=== PATIENT | female | born 1980 | race Two or more races ===

== ENCOUNTER 2021-03-13 23:13 | Outpatient (CLI) | payer OTHER | END 2021-03-13 23:14 | disposition critical access hospital (66) | LOC: EMS 23:13 | DX: R07.9 Chest pain, unspecified (principal); R11.10 Vomiting, unspecified | CPT/HCPCS: A0425; A0429 ==

== ENCOUNTER 2021-03-13 23:30 | Emergency (ER) | payer OTHER ==
--- NOTE | 2021-03-14 00:06 | ED Physician Documentation ---
PD HPI ABD PAIN - Stated complaint Stated Complaint: ALLERGIC RX - Chief complaint Chief Complaint: Abd Pain - History obtained from History obtained from: Patient - History of Present Illness Timing - onset: How many weeks ago (2-3) Timing - duration: Hours (she has had episodes of upper abd pains after eating for several weeks. Seen at [facility] and Dx with presumed gastritis. Normal labs per patient. Rx with Omeprazole and Cimetidine, and instructed to take PRN when abd worse. She is taking Cimetidine at times with pain without improvement. Took TUMs) Timing - details: Intermittant (most noted shortly to half hour after eating, more with spicy or acidic foos like tomato sauce, tomatoes, citrus. Does not feel it particular with fatty foods, though does not eat much fatty.) Quality: Cramping, Aching, Pain Location: RUQ, Epigastric Radiation: Upper back Improved by: No: Eating, Laying still, BM Worsened by: Eating. No: Moving, Breathing Associated symptoms: Nausea. No: Fever, Vomiting, Diarrhea, Constipation, Melena Similar symptoms before: Has not had sx before Recently seen: Clinic (seen [facility] 02/28/21 for this and Rx Omeprazole and Cimetidine.) Review of Systems Constitutional: denies: Fever, Chills Nose: denies: Rhinorrhea / runny nose, Congestion Throat: denies: Sore throat Respiratory: denies: Cough GI: reports: Abdominal Pain, Nausea. denies: Vomiting, Diarrhea : denies: Dysuria, Frequency Musculoskeletal: denies: Neck pain, Back pain, Extremity swelling Neurologic: denies: Generalized weakness, Near syncope PD PAST MEDICAL HISTORY - Past Medical History Past Medical History: Yes Cardiovascular: None Respiratory: None Neuro: None Endocrine/Autoimmune: None GI: GERD - Past Surgical History Past Surgical History: No - Present Medications Home Medications: Ambulatory Orders Medication Instructions Recorded Confirmed Cimetidine 200 mg PO TID 03/14/21 03/14/21 Lidocaine Viscous 2% [Xylocaine 5 ml PO Q4H PRN #100 ml 03/14/21 Viscous 2%] Omeprazole 20 mg PO DAILY 03/14/21 03/14/21 - Allergies Allergies/Adverse Reactions: Allergies Allergy/AdvReac Type Severity Reaction Status Date / Time No Known Drug Allergies Allergy Verified 03/13/21 23:43 - Social History Does the pt smoke?: No Smoking Status: Never smoker Does the pt drink ETOH?: Yes Does the pt have substance abuse?: No - Immunizations Immunizations are current?: Yes - POLST Patient has POLST: No PD ED PE NORMAL - Vitals Vital signs reviewed: Yes - General General: Alert and oriented X 3, Well developed/nourished - HEENT HEENT: Moist mucous membranes, Pharynx benign - Neck Neck: Supple, no meningeal sign, No adenopathy - Cardiac Cardiac: RRR, No murmur - Respiratory Respiratory: Clear bilaterally - Abdomen Abdomen: Normal bowel sounds, Soft, Non distended, No organomegaly, Other (tender epigastric to RUQ area without percussion nor rebound tenderness. ) - Female Female : Deferred - Rectal Rectal: Deferred - Back Back: No CVA TTP - Derm Derm: Normal color, Warm and dry - Extremities Extremities: Normal ROM s pain, No edema, No calf tenderness / cord - Neuro Neuro: Alert and oriented X 3, No motor deficit, Normal speech Results - Vitals Vitals: Vital Signs - 24 hr 03/13/21 03/14/21 03/14/21 23:38 00:24 01:11 Temperature 36.7 C Heart Rate 65 65 Respiratory 14 16 17 Rate Blood Pressure 120/71 111/70 O2 Saturation 100 99 03/14/21 03/14/21 03/14/21 01:48 02:15 03:04 Temperature Heart Rate 56 L 71 71 Respiratory 17 14 16 Rate Blood Pressure 105/55 L 100/58 L 102/57 L O2 Saturation 100 99 97 03/14/21 03:28 Temperature 36.7 C Heart Rate 68 Respiratory 16 Rate Blood Pressure 102/57 L O2 Saturation 98 Oxygen O2 Source Room air - Labs Labs: Laboratory Tests 03/14/21 03/14/21 01:08 01:08 WBC 10.1 RBC 4.34 Hgb 13.8 Hct 40.2 MCV 92.6 MCH 31.8 H MCHC 34.3 RDW 12.0 Plt Count 222 MPV 9.3 Neut # (Auto) 7.7 H Lymph # (Auto) 1.8 [place] # (Auto) 0.6 Eos # (Auto) 0.0 Baso # (Auto) 0.0 Sodium 135 Potassium 4.4 Chloride 101 Carbon Dioxide 26 Anion Gap 8.0 BUN 12 Creatinine 0.8 Estimated GFR (MDRD) 80 L Glucose 131 H Calcium 9.2 Total Bilirubin 0.8 AST 11 ALT 15 Alkaline Phosphatase 80 Total Protein 7.7 Albumin 4.4 Globulin 3.3 Albumin/Globulin Ratio 1.3 Lipase 38 - Rads (name of study) upper abd U/S Radiology: Prelim report reviewed (gallbladder wall thickening without surrounding fluid. Gallstones noted, with one in neck. ), See rad report PD MEDICAL DECISION MAKING - ED course Complexity details: reviewed results (labs are okay. U/S showing some GB wall thickening and neck stone, but no surrounding fluid. Physiologically distended. ), re-evaluated patient (she is feeling better after GI cocktail mainly, suggestive of gastric cause of the pain. But has character of symptoms suggestin g GB colic, so getting labs/Ultrasound. ), considered differential, d/w patient Departure - Departure Disposition: 01 Home, Self Care Clinical Impression: Epigastric pain, Thickening of wall of gallbladder Gastritis Qualifiers: Gastritis type: unspecified gastritis Chronicity: acute Gastritis bleeding: without bleeding Qualified Code(s): K29.00 - Acute gastritis without bleeding Condition: Stable Record reviewed to determine appropriate education?: Yes Instructions: ED Gallstone W Biliary Colic, ED PUD Vs Gastritis Follow-Up: [facility] [Provider Group] Porsche Flores MD [Provider Admit Priv/Credential] - Prescriptions: Lidocaine Viscous 2% [Xylocaine Viscous 2%] 5 ml PO Q4H PRN #100 ml PRN Reason: Pain Comments: I would suggest using the omeprazole daily for the next 3 to 4 weeks. Start your cimetidine at least twice daily for the next week. This will work on acid reduction in the stomach in 2 different ways. To that add antacids such as Maalox or Mylanta or Tums. You can combine with that the lidocaine to help with pain in the stomach. Add Tylenol if needed for pains. [place] food and well hydrated. Avoid spicy and fatty foods. Follow-up with general surgery regarding the idea of endoscopy to better evaluate the cause of the symptoms, gastritis versus ulcer, and to consider the extent the gallbladder is involved. Your ultrasound does show some stone in the gallbladder near the neck (outlet) of the gallbladder and some mild wall thickening, suggesting some inflammation of the gallbladder. Call Dr. Flores's office later today and tell them you were seen in the ER and would like a soon follow up appt. Follow-up with your primary care in about a week for reevaluation. Call for an appointment. Recheck with them sooner if not improving well over the next 3 to 5 days. Return to the ER if needed. [facility]
[2021-03-14] MEDS ORDERED: ONDANSETRON 4 MG/2 ML VIAL IVP STA (00:25)
[2021-03-14] MEDS ORDERED: MAG HYDROX/AL HYDROX/SIMETH 30 ML UDC PO STA (00:25)
[2021-03-14] MEDS ORDERED: MORPHINE 10 MG/ML VIAL IVP STA (00:25)
[2021-03-14] MEDS ORDERED: LIDOCAINE VISCOUS 2% 15 ML UDC MM STA (00:25)
[2021-03-14 02:17] LABS: HCT - HEMATOCRIT 40.2 % (37.0-47.0); HGB - HEMOGLOBIN 13.8 g/dL (12.0-16.0); MEAN CORPUSCULAR VOLUME 92.6 fL (81.0-99.0); RED BLOOD COUNT 4.34 10^6/uL (4.20-5.40); WHITE BLOOD COUNT 10.1 x10^3/uL (4.8-10.8)
[2021-03-14 02:18] LABS: LYMPHOCYTES % (AUTO) 17.4 %; MEAN CORPUSCULAR HEMOGLOBIN 31.8 pg (27.0-31.0); MEAN CORPUSCULAR HGB CONC 34.3 g/dL (32.0-36.0); MEAN PLATELET VOLUME 9.3 fL (7.9-10.8); MONOCYTES % (AUTO) 5.9 %; NEUTROPHILS % (AUTO) 75.7 %; PLT - PLATELET COUNT 222 10^3/uL (130-450)
[2021-03-14 02:19] LABS: ALBUMIN 4.4 g/dL (3.2-5.5); ALBUMIN/GLOBULIN RATIO 1.3 (1.0-2.2); BASOPHILS % (AUTO) 0.4 %; BILIRUBIN,TOTAL 0.8 mg/dL (0.2-1.0); CALCIUM 9.2 mg/dL (8.5-10.3); CREATININE 0.8 mg/dL (0.4-1.0); EOSINOPHILS % (AUTO) 0.4 %; LYMPHOCYTES # (AUTO) 1.8 10^3/uL (1.5-3.5); MONOCYTES # (AUTO) 0.6 10^3/uL (0.0-1.0); NEUTROPHILS # (AUTO) 7.7 10^3/uL (1.5-6.6); POTASSIUM 4.4 mmol/L (3.5-5.0); TOTAL PROTEIN 7.7 g/dL (6.7-8.2)
[2021-03-14 03:05] VITALS: BP 102/57
--- NOTE | 2021-03-14 08:08 | Ultrasound Report ---
PROCEDURE: Abdomen Limited INDICATIONS: epigastric/RUQ pain with vomiting TECHNIQUE: Real-time focused scanning was performed of the abdomen, with image documentation. COMPARISON: None available. FINDINGS: LIVER: The liver is normal in size and contour. No significant abnormality. PANCREAS: The visualized portions of the pancreas are normal. Gallbladder and biliary tree: Gallbladder wall thickening, measuring up to 3.8 mm. No appreciable p ericholecystic fluid. Multiple shadowing gallstones are seen, extending into the neck. The common bile that measures up to 4.2 mm. RIGHT KIDNEY: Normal in appearance with no hydronephrosis. Measuring 10 cm in length. The renal cor xiomara thickness measures 1.3 cm. No ascites. IMPRESSION: 1.Cholelithiasis as detailed above. Concordant interpretation with preliminary report. Reviewed by: Jose Peter MD on 03/14/2021 8:07 AM PDT Approved by: Jose Peter MD on 03/14/2021 8:07 AM PDT Station ID: [id number]
== END 2021-03-14 03:48 | disposition home or self-care (01) ==
LOC: ED 23:30
DX: K29.00 Acute gastritis without bleeding (principal); K82.8 Other specified diseases of gallbladder; K80.20 Calculus of gallbladder without cholecystitis without obstruction; K21.9 Gastro-esophageal reflux disease without esophagitis
CPT/HCPCS: 36415; 76705; 80053; 83690; 85025; 96374; 96375; 99283; 99284; A9270

== ENCOUNTER 2021-03-16 06:20 | Day surgery (SDC) | payer OTHER ==
--- NOTE | 2021-03-16 06:49 | ED Physician Documentation ---
PD HPI ABD PAIN - Stated complaint Stated Complaint: CHEST/ABD PX - Chief complaint Chief Complaint: Abd Pain - History obtained from History obtained from: Patient - History of Present Illness Timing - onset: Enter time (1230), Last night Timing - duration: Hours Timing - details: Abrupt onset, Still present Quality: Sharp, Pain Location: RUQ Radiation: Upper back Improved by: Laying still, Position, Meds Worsened by: Eating, Moving, Breathing, Position, Palpation Associated symptoms: Nausea. No: Fever, Diarrhea, Constipation Similar symptoms before: Diagnosis (cholelithiasis) Recently seen: Emergency Dept - Additional information Additional information: 40-year-old female reports a year-long history of postprandial abdominal pain. She states that usually this last 4 to 5 hours it is not severe in nature and is predictable depending on the foods eaten. She has had several episodes previou sly where she has had pains lasted all night and included some vomiting and radiation of the pain to her back. She had an episode similar 3 days ago and she had ultrasound done here in the emergency department demonstrating cholelithiasis and a thickened gallbladder wall. At that time she had normal white blood cell count she had control of her pain and went home. She was able to eat a banana yesterday without pain. Began at 1230 last night she developed pain radiating to her back and she has pain with each breath. She has some nausea with peak of the pain Review of Systems Constitutional: denies: Fever Eyes: denies: Decreased vision Ears: denies: Ear pain Nose: denies: Rhinorrhea / runny nose, Congestion Throat: denies: Dental pain / toothache Cardiac: reports: Chest pain / pressure. denies: Palpitations, Pedal edema, Calf pain Respiratory: denies: Dyspnea, Cough, Wheezing GI: reports: Abdominal Pain, Nausea, Other (no acholic stool). denies: Constipation, Diarrhea : denies: Dysuria, Frequency Skin: denies: Rash Musculoskeletal: reports: Back pain. denies: Neck pain, Extremity pain Neurologic: denies: Generalized weakness, Focal weakness, Numbness PD PAST MEDICAL HISTORY - Past Medical History Cardiovascular: None Respiratory: None Neuro: None Endocrine/Autoimmune: None GI: GERD - Past Surgical History Past Surgical History: No - Present Medications Home Medications: Ambulatory Orders Medication Instructions Recorded Confirmed Cimetidine 200 mg PO TID 03/14/21 03/16/21 Lidocaine Viscous 2% [Xylocaine 5 ml PO Q4H PRN #100 ml 03/14/21 03/16/21 Viscous 2%] Omeprazole 20 mg PO DAILY 03/14/21 03/16/21 - Allergies Allergies/Adverse Reactions: Allergies Allergy/AdvReac Type Severity Reaction Status Date / Time No Known Drug Allergies Allergy Verified 03/16/21 06:48 - Social History Does the pt smoke?: No Smoking Status: Never smoker Does the pt drink ETOH?: Yes Does the pt have substance abuse?: No - Immunizations Immunizations are current?: Yes - POLST Patient has POLST: No PD ED PE NORMAL - Vitals Vital signs reviewed: Yes (hypertensive ) - General General: Alert and oriented X 3, Well developed/nourished, Other (moaning in pain with each breath) - HEENT HEENT: Atraumatic, PERRL, EOMI - Neck Neck: Supple, no meningeal sign, No bony TTP - Cardiac Cardiac: RRR, No murmur - Respiratory Respiratory: No respiratory distress, Clear bilaterally - Abdomen Abdomen: Normal bowel sounds, Soft, Non distended, No organomegaly, Other (RUQ tenderness to palpation is reproducible. ) - Back Back: No CVA TTP, No spinal TTP - Derm Derm: Normal color, Warm and dry, No rash - Extremities Extremities: No deformity, No edema - Neuro Neuro: Alert and oriented X 3, jewelry repairer 2-12 intact, No motor deficit, No sensory deficit, Normal speech Eye Opening: Spontaneous Motor: Obeys Commands Verbal: Oriented GCS Score: 15 - Psych Psych: Normal mood, Normal affect Results - Vitals Vitals: Vital Signs - 24 hr 03/16/21 03/16/21 03/16/21 06:25 07:38 09:07 Temperature 36.7 C 36.7 C Heart Rate 77 60 60 Respiratory 20 14 14 Rate Blood Pressure 136/116 H 125/54 L 125/54 L O2 Saturation 98 100 100 Oxygen O2 Source Room air - EKG (time done) 0634 Rate: Rate (enter#) (61) Rhythm: NSR Ischemia: Normal ST segments Compare to prior EKG: Unchanged from prior EKG (SPT 03-13-21) Computer interpretation: Agree with computer - Labs Labs: Laboratory Tests 03/16/21 03/16/21 03/16/21 06:42 06:42 07:34 WBC 8.0 RBC 4.28 Hgb 13.7 Hct 39.9 MCV 93.2 MCH 32.0 H MCHC 34.3 RDW 11.9 L Plt Count 218 MPV 9.7 Neut # (Auto) 5.7 Lymph # (Auto) 1.7 [place] # (Auto) 0.5 Eos # (Auto) 0.1 Baso # (Auto) 0.0 Absolute Nucleated RBC 0.00 Nucleated RBC % 0.0 Sodium 141 Potassium 4.2 Chloride 106 Carbon Dioxide 27 Anion Gap 8.0 BUN 8 Creatinine 0.8 Estimated GFR (MDRD) 80 L Glucose 133 H Calcium 8.9 Total Bilirubin 0.9 AST 14 ALT 13 Alkaline Phosphatase 75 Total Protein 7.4 Albumin 4.2 Globulin 3.2 Albumin/Globulin Ratio 1.3 Lipase 44 Urine Color YELLOW Urine Clarity CLEAR Urine pH 8.5 H Ur Specific [place] 1.020 Urine Protein NEGATIVE Urine Glucose (UA) NEGATIVE Urine Ketones NEGATIVE Urine Occult Blood NEGATIVE Urine Nitrite NEGATIVE Urine Bilirubin NEGATIVE Urine Urobilinogen 0.2 (NORMAL) Ur Leukocyte Esterase NEGATIVE Ur Microscopic Review NOT INDICATED Urine Culture Comments NOT INDICATED Urine HCG, Qual Nasal Adenovirus (PCR) Nasal B. parapertussis DNA (PCR) Nasal Coronavir 229E PCR Nasal Coronavir HKU1 PCR Nasal Coronavir NL63 PCR Nasal Coronavir OC43 PCR Nasal Enterovir/Rhinovir PCR Nasal Influenza B PCR Nasal Influenza A PCR Nasal Parainfluen 1 PCR Nasal Parainfluen 2 PCR Nasal Parainfluen 3 PCR Nasal Parainfluen 4 PCR Nasal RSV (PCR) Nasal B.pertussis DNA PCR Nasal C.pneumoniae (PCR) [place] Metapneumo PCR Nasal M.pneumoniae (PCR) Nasal SARS-CoV-2 (PCR) 03/16/21 03/16/21 07:37 07:58 WBC RBC Hgb Hct MCV MCH MCHC RDW Plt Count MPV Neut # (Auto) Lymph # (Auto) [place] # (Auto) Eos # (Auto) Baso # (Auto) Absolute Nucleated RBC Nucleated RBC % Sodium Potassium Chloride Carbon Dioxide Anion Gap BUN Creatinine Estimated GFR (MDRD) Glucose Calcium Total Bilirubin AST ALT Alkaline Phosphatase Total Protein Albumin Globulin Albumin/Globulin Ratio Lipase Urine Color Urine Clarity Urine pH Ur Specific [place] Urine Protein Urine Glucose (UA) Urine Ketones Urine Occult Blood Urine Nitrite Urine Bilirubin Urine Urobilinogen Ur Leukocyte Esterase Ur Microscopic Review Urine Culture Comments Urine HCG, Qual NEGATIVE Nasal Adenovirus (PCR) NOT DETECTED Nasal B. parapertussis DNA (PCR) NOT DETECTED Nasal Coronavir 229E PCR NOT DETECTED Nasal Coronavir HKU1 PCR NOT DETECTED Nasal Coronavir NL63 PCR NOT DETECTED Nasal Coronavir OC43 PCR NOT DETECTED Nasal Enterovir/Rhinovir PCR NOT DETECTED Nasal Influenza B PCR NOT DETECTED Nasal Influenza A PCR NOT DETECTED Nasal Parainfluen 1 PCR NOT DETECTED Nasal Parainfluen 2 PCR NOT DETECTED Nasal Parainfluen 3 PCR NOT DETECTED Nasal Parainfluen 4 PCR NOT DETECTED Nasal RSV (PCR) NOT DETECTED Nasal B.pertussis DNA PCR NOT DETECTED Nasal C.pneumoniae (PCR) NOT DETECTED [place] [facility] Metapneumo PCR NOT DETECTED Nasal M.pneumoniae (PCR) NOT DETECTED Nasal SARS-CoV-2 (PCR) NOT DETECTED Procedures - Bedside sono Bedside sono by EMP: With use of bedside ultrasound the right upper quadrant is imaged the gallbladder is distended gallbladder wall thickness is 4 mm the gallbladder is sonographically tender there is some pericholecystic fluid there are stones in the gallbladder. PD MEDICAL DECISION MAKING - ED course Complexity details: reviewed results, re-evaluated patient, considered differential, d/w patient, d/w analytics consultant (Our surgeon Dr. Pathak is consulted and the case will come to the emergency department to evaluate the patient.) ED course: 40-year-old female with a history of abdominal pain postprandial for the past year has stones in her gallbladder she does appear to have acute cholecystitis today.Here in the emergency department an IV is begun she is given 30 mg of Toradol intravenously which was ineffective. She is subsequently given IV morphine 4mg with zofran. Departure - Departure Disposition: ED Transfer to [facility] Clinical Impression: Cholecystitis Cholelithiasis Qualifiers: Cholelithiasis location: gallbladder Cholecystitis presence: with cholecystitis Cholecystitis acuity: acute Biliary obstruction: without biliary obstruction Qualified Code(s): K80.00 - Calculus of gallbladder with acute cholecystitis without obstruction
[2021-03-16] MEDS ORDERED: KETOROLAC 30 MG/ML VIAL IVP STA (06:52)
[2021-03-16 07:11] LABS: ALBUMIN 4.2 g/dL (3.2-5.5); ALBUMIN/GLOBULIN RATIO 1.3 (1.0-2.2); BILIRUBIN,TOTAL 0.9 mg/dL (0.2-1.0); CALCIUM 8.9 mg/dL (8.5-10.3); CREATININE 0.8 mg/dL (0.4-1.0); POTASSIUM 4.2 mmol/L (3.5-5.0); TOTAL PROTEIN 7.4 g/dL (6.7-8.2)
[2021-03-16 07:31] LABS: BASOPHILS % (AUTO) 0.4 %; EOSINOPHILS # (AUTO) 0.1 10^3/uL (0.0-0.7); EOSINOPHILS % (AUTO) 1.2 %; HCT - HEMATOCRIT 39.9 % (37.0-47.0); HGB - HEMOGLOBIN 13.7 g/dL (12.0-16.0); LYMPHOCYTES # (AUTO) 1.7 10^3/uL (1.5-3.5); LYMPHOCYTES % (AUTO) 20.8 %; MEAN CORPUSCULAR HGB CONC 34.3 g/dL (32.0-36.0); MEAN CORPUSCULAR VOLUME 93.2 fL (81.0-99.0); MEAN PLATELET VOLUME 9.7 fL (7.9-10.8); MONOCYTES # (AUTO) 0.5 10^3/uL (0.0-1.0); MONOCYTES % (AUTO) 6.7 %; NEUTROPHILS # (AUTO) 5.7 10^3/uL (1.5-6.6); NEUTROPHILS % (AUTO) 70.7 %; PLT - PLATELET COUNT 218 10^3/uL (130-450); RED BLOOD COUNT 4.28 10^6/uL (4.20-5.40); RED CELL DISTRIBUTION WIDTH 11.9 % (12.0-15.0)
[2021-03-16] MEDS ORDERED: ONDANSETRON 4 MG/2 ML VIAL IVP STA (07:44)
[2021-03-16] MEDS ORDERED: MORPHINE 2 MG/ML CARPUJECT IVP STA (07:44)
[2021-03-16 07:47] LABS: BILIRUBIN,URINE NEGATIVE (NEGATIVE); GLUCOSE, URINE (UA) NEGATIVE (NEGATIVE); KETONES,URINE (UA) NEGATIVE (NEGATIVE); LEUKOCYTE ESTERASE, URINE NEGATIVE (NEGATIVE); NITRITE,URINE NEGATIVE (NEGATIVE); OCCULT BLOOD,URINE NEGATIVE (NEGATIVE); PH,URINE 8.5 PH (5.0-7.5); PROTEIN,URINE NEGATIVE (NEGATIVE); UROBILINOGEN,URINE 0.2 (NORMAL) E.U./dL (NORMAL)
[2021-03-16 07:50] LABS: HCG UR QUAL NEGATIVE
[2021-03-16 07:50] LABS: CLARITY,URINE CLEAR (CLEAR)
[2021-03-16] MEDS ORDERED: MAG HYDROX/AL HYDROX/SIMETH 30 ML UDC PO STA (08:12)
[2021-03-16] MEDS ORDERED: SUCRALFATE 1 GM/10 ML UDC PO STA (08:12)
[2021-03-16] MEDS ORDERED: LIDOCAINE VISCOUS 2% 15 ML UDC MM STA (08:12)
[2021-03-16 09:05] LABS: B. PARAPERTUSSIS- RESP PCR PAN NOT DETECTED; B. PERTUSSIS- RESP PCR PANEL NOT DETECTED; C. PNEUMONIAE- RESP PCR PANEL NOT DETECTED; CORONAVIRUS 229E-RESP PCR NOT DETECTED; CORONAVIRUS HKU1-RESP PCR NOT DETECTED; CORONAVIRUS NL63-RESP PCR NOT DETECTED; CORONAVIRUS OC43-RESP PCR NOT DETECTED; HUMAN METAPNEUMOVIRUS NOT DETECTED; INFLUENZA A- RESP PCR PANEL NOT DETECTED; INFLUENZA B - RESP PCR PANEL NOT DETECTED; M. PNEUMONIAE- RESP PCR PANEL NOT DETECTED; PARAINFLUENZA VIRUS 1 NOT DETECTED; PARAINFLUENZA VIRUS 2 NOT DETECTED; PARAINFLUENZA VIRUS 3 NOT DETECTED; PARAINFLUENZA VIRUS 4 NOT DETECTED; RHINOVIRUS/ENTEROVIRUS NOT DETECTED; RSV- RESP PCR PANEL NOT DETECTED; SARS-CoV-2 -RESP PCR PANEL NOT DETECTED
--- NOTE | 2021-03-16 09:05 | SURGERY HX AND PHYSICAL(T) ---
Surgical History & Physical - Chief Complaint/HPI Chief Complaint: RUQ pain History of Present Illness: This 40-year-old female has had intermittent episodes of right upper quadrant abdominal pain radiating to the back for more than 1 year. The worst of these episodes began 3 days ago. She was seen in the emergency room and had an ultrasound showing a gallbladder with multiple stones including a stone possibly impacted in the neck of the gallbladder. Ultrasound showed a mildly thickened gallbladder wall. The patient was sent home and advised to follow-up with the surgery clinic for elective cholecystectomy but she had worsening pain last night and came to the emergency room. She has had nausea and vomiting but has not been jaundiced. No fever. - PMH/PSH/Social Hx Does the pt have a hx of MRSA?: No Neurological History: None Cardiovascular: None Respiratory: None Endocrine/Autoimmune: None Gastrointestinal: GERD Is Patient ?: No PMH Other: Recently DX w/ Gallstones. Smoking Status: Never smoker Does the pt drink ETOH?: Yes Frequency: Occasional Does the pt have substance abuse?: No - Family Hx Family Hx: Unremarkable (Gallstones in brother) - Home Meds and Allergies Home Medications: Cimetidine 200 mg PO TID 03/14/21 Omeprazole 20 mg PO DAILY 03/14/21 Allergies/Adverse Reactions: Allergies Allergy/AdvReac Type Severity Reaction Status Date / Time No Known Drug Allergies Allergy Verified 03/16/21 06:48 - Review of Systems Constitutional: No: Fatigue, Fever, Chills Cardiac: No: CAD Respiratory: No: Shortness of breath Gastrointestinal: Nausea, Vomiting, Abdominal pain - Vital Signs Heart Rate: 60 Blood Pressure: 125/54 Temperature: 36.7 C Respiratory Rate: 14 O2 Saturation: 100 Weight (kg): 81.647 kg Height: 1.65 m - Physical Exam General Appearance: positive: No acute distress Eyes Bilatera: positive: Normal inspection ENT: positive: ENT inspection nml Neck: positive: Trachea midline Respiratory: positive: No respiratory distress Cardiovascular: positive: Regular rate & rhythm Abdomen: positive: Tenderness (Right upper quadrant), Other (Positive Vickers sign) - Patient Review Patient Review: Problems were reviewed with the patient during this visit. Medications were reviewed with the patient during this visit. Allergies were reviewed this patient during this visit. Pertinent Tests Reviewed: All pertitent test for this patient were reviewed. - Assessment & Plan Assessment and Plan: Acute cholecystitis with cholelithiasis, normal diameter common bile duct. Normal liver function tests, normal white count. Patient has been consented for laparoscopic cholecystectomy, possible open cholecystectomy. Preoperative Zosyn 1 dose will be given
[2021-03-16] MEDS ORDERED: SODIUM CHLORIDE 0.9% 1,000 ML IV STA (09:11)
[2021-03-16] MEDS ORDERED: PIPERACILLIN/TAZOBACTAM 3.375 GM in SODIUM CHLORIDE 0.9% MINIBAG 100 ML IV STA (09:11)
--- NOTE | 2021-03-16 09:50 | ANESTHESIA ---
Pre-Anesthesia VS, & Labs - Diagnosis acute cholecystitis - Procedure Lap Dulce Maria Vital Signs: Temp Pulse Resp BP Pulse Ox 36.7 C 60 14 125/54 L 100 03/16/21 09:10 03/16/21 09:10 03/16/21 09:10 03/16/21 09:10 03/16/21 09:10 Height: 5 ft 5 in Weight (kg): 81.647 kg Body Mass Index: 29.9 BMI Classification: Overweight - NPO >8 hours - Is Patient ?: No - Lab Results Current Lab Results: Laboratory Tests 03/16/21 06:42: Sodium 141, Potassium 4.2, Chloride 106, Carbon Dioxide 27, Anion Gap 8.0, BUN 8, Creatinine 0.8, Estimated GFR (MDRD) 80 L, Glucose 133 H, Calcium 8.9, Total Bilirubin 0.9, AST 14, ALT 13, Alkaline Phosphatase 75, Total Protein 7.4, Albumin 4.2, Globulin 3.2, Albumin/Globulin Ratio 1.3, Lipase 44 03/16/21 06:42: WBC 8.0, RBC 4.28, Hgb 13.7, Hct 39.9, MCV 93.2, MCH 32.0 H, MCHC 34.3, RDW 11.9 L, Plt Count 218, MPV 9.7, Neut # (Auto) 5.7, Lymph # (Auto) 1.7, [place] # (Auto) 0.5, Eos # (Auto) 0.1, Baso # (Auto) 0.0, Absolute Nucleated RBC 0.00, Nucleated RBC % 0.0 Fish Bones: 03/16/21 06:42 03/16/21 06:42 Home Medications and Allergies Cimetidine 200 mg PO TID 03/14/21 Omeprazole 20 mg PO DAILY 03/14/21 Allergies/Adverse Reactions: Allergies Allergy/AdvReac Type Severity Reaction Status Date / Time No Known Drug Allergies Allergy Verified 03/16/21 06:48 Anes History & Medical History - Anesthetic History Family history of Anesthesia Complications: Denies Family history of Malignant Hyperthermia: Denies - Medical History Cardiovascular: reports: None Pulmonary: reports: None Gastrointestinal: reports: GERD Urinary: reports: None Neuro: reports: None Musculoskeletal: reports: None Endocrine/Autoimmune: reports: None Blood Disorders: reports: None Skin: reports: None Smoking Status: Never smoker Psychosocial: reports: No issues indicated History of Cancer?: No Other Past Medical History: Recently DX w/ Gallstones. Exam General: Alert, Oriented x3, Cooperative, No acute distress Dental: WNL Mouth Openin Fingerbreadth Neck Mobility: Normal Mallampati classification: II Thyromental Distance: 4-6 cm Mental/Cognitive Status: Alert/Oriented X3, Normal for patient Plan Anesthesia Type: General Consent for Procedure(s) Verified and Reviewed: Yes Code Status: Attempt Resuscitation ASA classification: 2-Mild systemic disease Is this case an emergency?: No
[2021-03-16] MEDS ORDERED: ONDANSETRON 4 MG/2 ML VIAL IVP PRN ×2 (10:16→12:56)
[2021-03-16] MEDS ORDERED: ATROPINE ABBOJECT 1 MG/10 ML SYRINGE IVP PRN (10:16)
[2021-03-16] MEDS ORDERED: MORPHINE 2 MG/ML CARPUJECT IVP PRN (10:16)
[2021-03-16] MEDS ORDERED: fentaNYL 100 MCG/2 ML VIAL IVP PRN (10:16)
[2021-03-16] MEDS ORDERED: HYDROmorphone 0.5 MG/0.5 ML SYRINGE IVP PRN (10:16)
[2021-03-16] MEDS ORDERED: NALOXONE 0.4 MG/ML VIAL IVP PRN (10:16)
[2021-03-16] MEDS ORDERED: LACTATED RINGERS 1,000 ML IV SCH (11:00)
--- NOTE | 2021-03-16 12:43 | ANESTHESIA POST OP EVALUATION ---
Anesthesia Post Eval - Post Anesthesia Eval Vitals: Last Vital Signs Temp 36.7 C 03/16/21 09:10 Pulse 60 03/16/21 09:10 Resp 14 03/16/21 09:10 BP 125/54 L 03/16/21 09:10 Pulse Ox 100 03/16/21 09:10 CV Function Including HR & BP: Stable Pain Control: Satisfactory Nausea & Vomiting: Negative Mental Status: Baseline Respiratory Status: Airway Patent Hydration Status: Satisfactory Anesthesia Complications: Other (Left AC IV infiltration. Warm compresses placed.)
--- NOTE | 2021-03-16 12:46 | OPERATIVE REPORT ---
Operative Report - General Procedure Date: 03/16/21 Planned Procedure: Laparoscopic cholecystectomy with IOC Pre-Op Diagnosis: Acute cholecystitis, cholelithiasis Procedure Performed: Laparoscopic Cholecystectomy and Intraoperative Cholangiogram Post Op Diagnosis: Acute cholecystitis with cholelithiasis - Procedure Note Primary Surgeon: Jim Pathak MD Anesthesia Provider: Tisha Villalobos CRNA Anesthesia Technique: General ET tube Pathology: Gallbladder Estimated Blood Loss (mL): 50 Indications: 40-year-old female with over 1 year of right upper quadrant pain and ultrasound demonstrating multiple gallstones with a thickened gallbladder wall. Findings: Acutely inflamed gallbladder with adhesions to the duodenum, normal-appearing cystic duct and common duct. Complications: none - Other Other Information/Narrative: The patient was identified and the procedure was confirmed as laparoscopic cholecystectomy with intraoperative cholangiogram. Following the induction of adequate general endotracheal anesthesia, the abdomen was prepped and draped in the usual sterile fashion. Following a surgical pause, 0.5% Marcaine was infiltrated at the planned trocar sites, supraumbilical, subxiphoid, and two 5 mm ports in the right upper quadrant. Initial attention was turned to the supraumbilical trocar site a transverse incision was made at the umbilicus. The fascia was exposed and a small transverse incision was made in the fascia with Metzenbaum scissors the abdomen was then entered bluntly with a hemostat. A 5 mm trocar was placed and carbon dioxide was then used to insufflate the abdomen. Once adequate insufflation had been achieved an additional 12 mm trocar was placed at the subxiphoid site under direct vision and the 5 mm umbilical trocar was changed to a 12 mm trocar the 2 5 mm port were then placed in the right upper quadrant under direct visualization. The patient was placed in reverse Trendelenburg with left side down. Gallbladder was identified and grasped at the fundus. The gallbladder was tense and distended and was decompressed with a needle trocar removing 30 to 40 mL of clear fluid. The infundibulum was grasped and retracted laterally. The cystic artery was identified lying anterior to the cystic duct and this was clipped twice proximally once distally and divided. The cystic duct was then dissected free. A critical view was obtained and the cystic duct was clearly identified entering the infundibulum of the gallbladder with infundibulum retracted laterally. A single clip was placed on the infundib ulum side of the cystic duct. Scissors were then used to create a ductotomy and the cystic duct. A nephrostomy tube was placed through the trocar and passed into the cystic duct and clamped in place. Cholangiogram was then taken and showed no evidence of stones in the common duct with free flow of contrast into the duodenum. Contrast was also seen to pass retrograde into the ducts of the liver. The cholangiocatheter was then removed the cystic duct was clipped twice proximally and divided. The gallbladder was then dissected from the bed. There was some difficulty as the gallbladder was full of stones and difficult to grasp but eventually the gallbladder was dissected free with no bile leakage and good hemostasis. The gallbladder was placed into an Endo Catch bag and brought out through the umbilical trocar site which was enlarged slightly to remove the specimen. The umbilical trocar site was closed with a Edward Abbott and 0 Vicryl. Additional 0 Vicryl was placed to close the fascia at the umbilicus. The right upper quadrant was checked again irrigated with saline and aspirated dry. There was no bile leakage and no bleeding. All irrigation was aspirated dry. Trochars were removed under direct vision. The trocar sites were closed with 4-0 subcuticular Monocryl and skin glue was applied. Patient was extubated in the operating room and transferred to the recovery room in stable condition. Sponge, instrument, needle counts were correct at the conclusion of the case.
[2021-03-16] MEDS ORDERED: HYDROmorphone 1 MG/ML CARPUJECT IVP PRN (12:56)
[2021-03-16] MEDS ORDERED: SODIUM CHLORIDE FLUSH 0.9% 10 ML SYRINGE IVP PRN (12:56)
[2021-03-16] MEDS ORDERED: LACTATED RINGERS 1,000 ML IV STA (14:08)
[2021-03-16] MEDS: SODIUM CHLORIDE FLUSH 0.9% 10 ML SYRINGE IVP SCH (16:42)
[2021-03-17] MEDS: oxyCODONE 5 MG TABLET PO PRN ×3 (00:40→11:42)
[2021-03-17] MEDS: SODIUM CHLORIDE FLUSH 0.9% 10 ML SYRINGE IVP SCH ×2 (00:40→07:37)
[2021-03-17 07:06] VITALS: BP 107/65
[2021-03-17] MEDS: ACETAMINOPHEN 325 MG TABLET PO PRN ×2 (07:37→11:42)
--- NOTE | 2021-03-17 11:04 | Discharge Plan ---
Discharge Plan Problem Reviewed?: Yes Disposition: Home, Self Care Condition: Good Prescriptions: oxyCODONE [Roxicodone] 5 mg PO Q4HR PRN #12 tablet PRN Reason: Pain Diet: Regular Activity Restrictions: No heavy lifting for 1 wk Shower Restrictions: No Driving Restrictions: No Additional Instructions or Follow Up instructions: Call [facility] for follow up appointment in one week. No Smoking: If you smoke, Please STOP! Call for help.
--- NOTE | 2021-03-17 11:13 | DISCHARGE SUMMARY ---
"Discharge Summary Admit Date: 03/16/21 Discharge Date: 03/17/21 Discharging Provider: Lawson Code Status: Attempt Resuscitation Condition at Discharge: Good Discharge Disposition: 01 Home, Self Care - DIAGNOSES Admission Diagnoses: Cholecystitis, cholelithiasis Discharge Diagnoses with Status of Each Condition: Improved s/p lap cholecystectomy, IOC - HPI History of Present Illness: 40 yo female with one year of abdominal pain in RUQ, US showed multiple stones and thickened GB wall. - CONSULTS | PROCEDURES Procedures: Lap cholecystectomy, IOC - HOSPITAL COURSE Hospital Course: Admitted to OR for lap cholecystectomy, IOC, tolerated procedure well. Postop course unremarkable. Tolerating diet, abdomen soft, incisions OK, afebrile, ambulatory. - ALLERGIES Allergies/Adverse Reactions: Allergies Allergy/AdvReac Type Severity Reaction Status Date / Time No Known Drug Allergies Allergy Verified 03/16/21 06:48 - MEDICATIONS Home Medications: Ambulatory Orders Medication Instructions Recorded Confirmed Cimetidine 400 mg PO TID 03/14/21 03/16/21 Acetaminophen [Aphen] 325 mg PO Q6HR #30 tablet 03/17/21 oxyCODONE [Roxicodone] 5 mg PO Q6H PRN #12 tablet 03/17/21 - PHYSICAL EXAM AT DISCHARGE General Appearance: positive: No acute distress Abdomen: positive: Non-tender - LABS Result Diagrams: 03/16/21 06:42 03/16/21 06:42 - DIAGNOSTIC IMAGING Diagnostic Imaging Results: Final report reviewed - FOLLOW UP Follow Up: Call Surgery Clinic for follow up in one week. - TIME SPENT Time Spent in Discharge (Minutes): 30"
== END 2021-03-17 12:45 | disposition home or self-care (01) ==
LOC: ED 06:20 → SDS 09:50 → MS2 12:49 → SDS 03-17 12:45
PROVIDERS: ATTEND Surgery
PROC: BF00YZZ Plain Radiography of Bile Ducts using Other Contrast (ICD-10-PCS; 2021-03-16)
PROC: 0FT44ZZ Resection of Gallbladder, Percutaneous Endoscopic Approach (ICD-10-PCS; principal; 2021-03-16 10:00)
DX: K80.12 Calculus of gallbladder with acute and chronic cholecystitis without obstruction (principal); Z20.822 Contact with and (suspected) exposure to COVID-19
CPT/HCPCS: 0202U; 36415; 47563; 80053; 81003; 81025; 83690; 85025; 93005; 96361; 96374; 96375; 99285; A9270; C1758; J7120; 81001; 87086